=== PATIENT | female | born 2000 | race African-American/Black ===

== ENCOUNTER 2018-07-29 06:02 | Emergency (ER) | payer SELFPAY ==
[~2018-07-29] VITALS: Ht 162.6 cm; Wt 59.1 kg
[2018-07-29 06:11] VITALS: Ht 162.6 cm; Wt 59.1 kg
[2018-07-29] MEDS ORDERED: AUGMENTIN 875-11 TAB PO (06:39)
[2018-07-29] MEDS ORDERED: ERYTHROMYCIN OPT1 GM EACH EYE (06:39)
[2018-07-29] MEDS ORDERED: FLUTICASONE PRO16 GM NASAL (06:39)
[2018-07-29 06:45] VITALS: BP 112/72
== END 2018-07-29 06:45 | disposition home or self-care (01) ==
LOC: D.ER 06:02
DX: J01.90 Acute sinusitis, unspecified (principal); R09.89 Other specified symptoms and signs involving the circulatory and respiratory systems

== ENCOUNTER 2018-08-02 19:56 | Emergency (ER) | payer SELFPAY ==
[~2018-08-02] VITALS: Ht 162.6 cm; Wt 59.1 kg
[~2018-08-02 19:56] MED LIST: AUGMENTIN 875-11 TAB PO; ERYTHROMYCIN OPT1 GM EACH EYE; FLUTICASONE PRO16 GM NASAL
[2018-08-02 20:00] VITALS: Ht 162.6 cm; Wt 59.1 kg
[2018-08-02 20:43] LABS: EOSINOPHILS 2.8 % (0-7); HEMATOCRIT 42.6 % (36.0-48.0); HEMOGLOBIN 14.6 g/dL (12-16); IMMATURE GRANULOCYTES 0.2 % (0-5); LYMPHOCYTES 39.4 % (15-50); MCH 31.4 pg (26.0-34.0); MCHC 34.3 g/dL (31.0-37.0); MCV 91.6 fL (80.0-100.0); MEAN PLATELET VOLUME 10.2 fL (7.4-10.4); MONOCYTES 14.8 % (2-11); NEUTROPHILS 41.8 % (40-80); PLATELET COUNT 259 10x3/uL (130-400); RBC 4.65 10x6/uL (4.00-5.40); RDW 11.9 % (11.5-14.5); WBC 4.9 10x3/uL (4.8-10.8)
[2018-08-02 20:59] LABS: ALBUMIN 3.3 g/dL (3.4-5.0); ALKALINE PHOSPHATASE 62 U/L (46-116); ALT (SGPT) 15 U/L (10-68); BILIRUBIN - TOTAL 0.38 mg/dL (0.2-1.3); CALC OSMOLALITY 276 mosm/kg (275-300); CALCIUM 8.6 mg/dL (8.5-10.1); CARBON DIOXIDE 25.1 mmol/L (21.0-32.0); CHLORIDE - SERUM 104 mmol/L (98-107); CREATININE - SERUM 0.8 mg/dL (0.6-1.3); GLUCOSE 84 mg/dL (74-106); POTASSIUM - SERUM 3.6 mmol/L (3.5-5.1); PROTEIN - SERUM 7.5 g/dL (6.4-8.2); SODIUM 139 mmol/L (136-145); UREA NITROGEN 13 mg/dL (7-18); eGFR NON AFRICAN AMERICAN > 90 mL/min (90-120)
[2018-08-02] MEDS ORDERED: MUCINEX DM ER1 EAC1 PO (21:47)
[2018-08-02] MEDS ORDERED: ZOFRAN ODT4 MG/UDTAB PO (21:47)
[2018-08-02 22:23] VITALS: BP 97/67
== END 2018-08-02 22:23 | disposition home or self-care (01) ==
LOC: D.ER 19:56
PROVIDERS: Family Medicine
DX: B34.9 Viral infection, unspecified (principal); R09.89 Other specified symptoms and signs involving the circulatory and respiratory systems; R07.9 Chest pain, unspecified; R10.9 Unspecified abdominal pain

== ENCOUNTER 2019-12-28 04:37 | Inpatient (IN) | payer BC ==
[~2019-12-28] VITALS: Ht 162.6 cm; Wt 74.8 kg
[~2019-12-28 04:37] MED LIST changes: +MUCINEX DM ER1 EAC1 PO; +ZOFRAN ODT4 MG/UDTAB PO
[2019-12-28 07:43] LABS: UDS - AMPHET NEGATIVE QUAL (NEGATIVE); UDS - BARB NEGATIVE QUAL (NEGATIVE); UDS - BENZO NEGATIVE QUAL (NEGATIVE); UDS - COCAINE NEGATIVE QUAL (NEGATIVE); UDS - OPIATE NEGATIVE QUAL (NEGATIVE); UDS - PCP NEGATIVE QUAL (NEGATIVE); UDS - THC NEGATIVE QUAL (NEGATIVE)
[2019-12-28 07:53] LABS: BACTERIA FEW /hpf (NEGATIVE); BILIRUBIN NEGATIVE (NEGATIVE); EPITHELIAL CELLS 0-5 /hpf (0-5); GLUCOSE NEGATIVE (NEGATIVE); KETONE NEGATIVE (NEGATIVE); NITRITE NEGATIVE (NEGATIVE); RED CELLS - URINE RARE /hpf (0-5); UROBILINOGEN NORMAL (NORMAL); WHITE CELLS - URINE 0-5 /hpf (NEGATIVE)
[2019-12-28 08:01] LABS: HEMATOCRIT 29.9 % (36.0-48.0); HEMOGLOBIN 9.8 g/dL (12-16); MCHC 32.8 g/dL (31.0-37.0); MCV 91.4 fL (80.0-100.0); MEAN PLATELET VOLUME 9.9 fL (7.4-10.4); RBC 3.27 10x6/uL (4.00-5.40); RDW 12.2 % (11.5-14.5); WBC 11.2 10x3/uL (4.8-10.8)
[2019-12-28 08:08] VITALS: BP 119/77; Ht 162.6 cm; Wt 74.8 kg
[2019-12-28 19:30] VITALS: BP 111/69
--- NOTE | 2019-12-28 19:30 | NUR ---
PT REC'D IN BED AT THIS TIME. STATES THAT BACK IS SORE. REFUSES PAIN MEDICATION AT THIS TIME. SALINE LOCK TO THE LFT WRIST. SITE CELAR. FUNDUS FIRM U/2 WITH MODERATE LOCHIA NOTED. VSS. NO DISTRESS NOTED. CALL LIGHT IN EASY REACH. Bailey PARISH RN
--- NOTE | 2019-12-28 20:36 | NUR ---
PT SITTING IN BED HOLDING BABY AT THIS TIME. NO NEEDS VOICED. Bailey PARISH, RN
--- NOTE | 2019-12-28 21:30 | NUR ---
PT REC'D IN BED AT THIS TIME. [facility] ASSISTED PATIENT WITH FEEDING AT THIS TIME. NO DISTRESS NOTED. Bailey PARISH RN
--- NOTE | 2019-12-28 22:40 | NUR ---
PT REC'D IN BED WITH S/O AND . NO DISTRESS NOTED. NO NEEDS VOICED. Bailey PARISH RN
--- NOTE | 2019-12-28 22:56 | NUR ---
RN TO PT BEDSIDE, PT REQUEST SNACK TRAY AT THIS TIME, SNACK TRAY PROVIDED TO PT.
--- NOTE | 2019-12-29 00:45 | NUR ---
PT REC'D IN BED ASLEEP AT THIS TIME. RESTING WELL AT THIS TIME. RESPS EVEN AND UNLABORED. NO DISTRESS NOTED. Bailey PARISH RN
--- NOTE | 2019-12-29 02:23 | NUR ---
PT REC'D IN BED AT THIS TIME AND MEDICATED FOR PAIN WITH MOTRIN. WILL CONTINUE MONITOR. Bailey PARISH RN
--- NOTE | 2019-12-29 05:20 | NUR ---
PT REC'D IN BED RESTING COMFORTABLY AT THIS TIME. Bailey PARISH RN
[2019-12-29 06:57] LABS: BASOPHILS 0.2 % (0-2); EOSINOPHILS 0.7 % (0-7); HEMATOCRIT 28.3 % (36.0-48.0); HEMOGLOBIN 9.3 g/dL (12-16); IMMATURE GRANULOCYTES 0.4 % (0-5); LYMPHOCYTES 21.3 % (15-50); MCHC 32.9 g/dL (31.0-37.0); MCV 91.3 fL (80.0-100.0); MEAN PLATELET VOLUME 10.2 fL (7.4-10.4); MONOCYTES 9.6 % (2-11); NEUTROPHILS 67.8 % (40-80); PLATELET COUNT 228 10x3/uL (130-400); RDW 12.1 % (11.5-14.5); WBC 13.1 10x3/uL (4.8-10.8)
--- NOTE | 2019-12-29 07:30 | NUR ---
DIETARY SERVED REGULAR BREAKFAST TRAY, PT DENIES ALL NEEDS AT THIS TIME. WILL RETURN FOR AM ASSESSMENT. SRUP X2, CALL LIGHT AND PHONE WITHIN REACH.
--- NOTE | 2019-12-29 09:45 | NUR ---
PT LYING IN BED ON HER LEFT SIDE, RESP EVEN AND UL, PT IS ASLEEP, NOT DISTURBED. SIG OTHER AWAKE ON COUCH, INFANT IN CRIB, RESTING WITH EYES CLOSED, NO DISTRESS NOTED. SRUP X2, CALL LIGHT AND PHONE WITHIN REACH.
--- NOTE | 2019-12-29 12:15 | NUR ---
AM ASSESSMENT COMPLETED. SEE FLOWSHEET. PT DENIES HEAVY BLEEDING OR PASSING CLOTS. PT PROVIDED WITH EXTRA PERIPANTIES/PADS, CLEAN GOWN AND LINENS. PERICARE DONE PER SELF. SEE EMAR FOR ALL MEDS ADM BY THIS RN. SRUP X2, CALL LIGHT AND PHONE WITHIN REACH.
[2019-12-29 12:25] VITALS: BP 108/69
[2019-12-29 15:00] VITALS: BP 100/62
--- NOTE | 2019-12-29 15:00 | NUR ---
OUTREACH CLINICIAN HERE TO CARE ATTEND TO PT'S NEEDS.
--- NOTE | 2019-12-29 17:16 | MORECARE ---
CASE MANAGEMENT DISCHARGE SUMMARY PATIENT: GERI LOREDO UNIT: [id number] ADM DATE: 12/28/19 AGE: 19 : 98 SEX: F ROOM/BED: D.1276 AUTHOR: PHIL URBINA PHYSICIAN: REFERRING PHYSICIAN: RASHID BAKER MD DATE OF SERVICE: 12/29/19 Discharge Plan Patient Name: [facility]ED[facility] [facility] 2000 Planned Disposition: Home Anticipated Discharge Date: Discharge Date: Expected LOS: Initial Reviewer: [email or web address] Initial Review Date: 12/28/2019 Generated: 12/29/19 6:16 pm Patient Name: GERI LOREDO Page [id number] at 1716 All edits/amendments must be made on the electronic document DICTATION DATE: 12/29/191715 SENIOR SYSTEMS ARCHITECT: GUADALUPE 12/29/191715 RPT#: [id number] DC DATE: STATUS: ADM IN [facility] [address] [place] [address] END OF REPORT
--- NOTE | 2019-12-29 17:45 | NUR ---
DIETARY SERVES REGULAR SUPPER TRAY. PT DENIES ALL OTHER NEEDS AT THIS TIME. SRUP X2, CALL LIGHT AND PHONE WITHIN REACH.
--- NOTE | 2019-12-29 19:00 | NUR ---
REPORT GIVEN BY PHIL JASSO
--- NOTE | 2019-12-29 19:30 | NUR ---
PT WAS MOVED TO 1223. PT AMBULATED OVER TO [facility]. THE BABY FOLLOWED AFTER BY NURSERY NURSE. HER BELONGINGS WERE BROUGHT BY HER NURSE.
[2019-12-29 20:30] VITALS: BP 109/78
--- NOTE | 2019-12-29 20:30 | NUR ---
PT ASSESSMENT COMPLETED. PT IS AMBULATORY IN ROOM AND HALLWAY. SHE DOES NOT C/O PAIN AT THIS TIME. FUNDUS IS FIRM AND BLEEDING SMALL AMT. PT IS VOIDING WELL WITHOUT C/O. HEART SOUNDS GOOD, LUNGS CLEAR, BS HEARD. PT HAS NO NEEDS AT THIS TIME.
--- NOTE | 2019-12-29 22:23 | NUR ---
PT TRANSFERRED TO L&D ROOM 1273 VIA AMBULATORY.
--- NOTE | 2019-12-29 22:30 | NUR ---
PT MOVED BACK TO ROOM 1273 B/C [facility] IS CLOSING. PT IS DOING WELL. HER BABY IS IN THE CRIB AT BEDSIDE. SHE AMBULATED TO HER NEW ROOM WITHOUT DIFFICULTY. SHE HAS NO C/O AT THIS TIME. SHE WAS GIVEN A NEW MUG OF WATER AND 2 SODAS AND A CUP OF ICE. A DEVON BOTTLE WAS ALSO TAKEN TO HER. SHE IS HAPPY IN HER NEW ROOM. REPORT GIVEN TO ROMERO.
--- NOTE | 2019-12-29 23:21 | NUR ---
ROUNDING ON PT. PT DENIES ANY NEEDS AT THIS TIME. IN MOTHER'S ARMS.
--- NOTE | 2019-12-30 01:15 | NUR ---
PT RESTING IN BED AT THIS TIME. DENIES NEEDS AT THIS TIME. Bailey PARISH RN
--- NOTE | 2019-12-30 01:59 | NUR ---
INFANT TAKEN TO MOTHER'S BEDSIDE AT THIS TIME. MOTHER INSTRUCTED TO ATTEMPT TO COMFORT BABY IN BETWEEN FEEDS, USING PACIFIER, CUDDLING, SWADDLING, SO THAT BABY IS NOT SNACKING, AND IS ABLE TO TAKE GOAL VOLUME AT SCHEDULED FEEDINGS.
--- NOTE | 2019-12-30 02:15 | NUR ---
PT REC'D IN BED AT THIS TIME. NO DISTRESS NOTED. PT PROVIDED WITH WATER AT THIS TIME. Bailey PARISH RN
--- NOTE | 2019-12-30 02:15 | NUR ---
ROUNDING AT THIS TIME, PT SLEEPING.
--- NOTE | 2019-12-30 03:59 | NUR ---
PT REQUEST ICE WATER AT THIS TIME. RN PROVIDED PT WITH ICE WATER.
[2019-12-30 04:02] VITALS: BP 99/56
--- NOTE | 2019-12-30 04:03 | NUR ---
VSS. PT STATES PAIN IS 1-2/10 TO PERINEUM AT THIS TIME. FUNDUS IS FIRM, MIDLINE, 2 BELOW, SCANT RUBRA LOCHIA, NO CLOTS NOTED. PT STATES ALL NEEDS CURRENTLY MET.
--- NOTE | 2019-12-30 04:08 | NUR ---
PT GIVEN WATER AT THIS TIME. NO DISTRESS NTED. Bailey PARISH RN
--- NOTE | 2019-12-30 04:23 | NUR ---
PT PROVIDED WITH SANDWICH TRAY AND SODA FOR BOTH HER AND HER SIGNIFICANT OTHER AT THIS TIME.
[2019-12-30 07:13] LABS: RAPID PLASMA REAGIN Non Reactive (Non Reactive)
--- NOTE | 2019-12-30 07:45 | NUR ---
AM ASSESSMENT COMPLETED, SEE FLOWSHEET. PT DENIES HEAVY BLEEDING OR PASSING CLOTS. PT HAS REGULAR BREAKFAST TRAY, PT HAS REQUESTED A DR. PEPPER TO DRINK, SERVED. DENIES ALL OTHER NEEDS AT THIS TIME. SR UP X2, CALL LIGHT AND PHONE WITHIN REACH.
[2019-12-30 07:50] VITALS: BP 107/64
--- NOTE | 2019-12-30 07:56 | NUR ---
SEE EMAR FOR ALL MEDS ADM BY THIS RN. SRUP X2, CALL LIGHT AND PHONE WITHIN REACH.
--- NOTE | 2019-12-30 08:01 | NUR ---
PT HAS BEEN UP TO BR, VOIDS PER SELF WITHOUT DIFFICULTY.
--- NOTE | 2019-12-30 11:45 | NUR ---
DIETARY SERVES REGULAR LUNCH TRAY, PT DENIES ALL OTHER NEEDS AT THIS TIME. SRUP X2, CALL LIGHT AND PHONE WITHIN REACH.
--- NOTE | 2019-12-30 14:25 | NUR ---
PT SITTING UP IN BED BOTTLE FEEDING INFANT, POC DISCUSSED WITH PT REGARDING DISCHARGE AND ROOMING IN, PT PROVIDED, INST ON AND VERBALIZES UNDERSTANDING OF ROOMING IN PAPERWORK, INFORMED PT THAT I WILL BE BACK SHORTLY WITH DISCHARGE PAPERWORK, FOB SHOWN WHICH ROOM PT WILL BE TRANSFERRED TO, SO HE CAN TAKE ALL BELONGINGS TO ROOM
--- NOTE | 2019-12-30 15:50 | NUR ---
RECEIVED REPORT FROM PREETI MOY RN
--- NOTE | 2019-12-30 17:05 | NUR ---
WHILE WORKING ON PT'S DISCHARGE PAPERWORK, INFANT ALARM WENT OFF, THIS RN, EZEQUIEL CASTAÑEDA, RN, AND PREETI MOY, RN UP TO SEE WHICH ALARM WAS GOING OFF, PT, FOB AND INFANT IN OPEN CRIB CARTE NOTED NOT TO BE IN ROOM, FOB WAS TAKING PT TO HER NEW ROOM, PT INFORMED THAT SHE WAS NOT DISCHARGED YET, WENT AHEAD AND MOVED PT TO ROOM 1221, PT ORIENTED TO ROOM, BED IN LOW POSITION, SIDE RAILS X 2, INFORMED PT THAT I WILL BE BACK SHORTLY WITH PAPERWORK, PT VERBALIZES UNDERSTANDING
[2019-12-30] MEDS ORDERED: HYDROCODON-ACE1 EAC7 PO (17:19)
--- NOTE | 2019-12-30 18:00 | NUR ---
PT HOLDING INFANT, FOB AT BEDSIDE, WENT OVER ALL DISCHARGE PAPERWORK WITH PT, PT VERBALIZES UNDERSTANDING, PT INST ON NOT LOSING HER PRESCRIPTION, PT VERBALIZES UNDERSTANDING, PT DENIES ANY QUESTIONS AT THIS TIME, PT AGAIN ORIENTED TO L&D AND NSY EXTENSION FOR ANY ASSISTANCE WITH , PT DENIES FURTHER NEEDS
--- NOTE | 2019-12-31 09:16 | MORECARE ---
CASE MANAGEMENT DISCHARGE SUMMARY PATIENT: GERI LOREDO UNIT: [id number] ADM DATE: 12/28/19 AGE: 19 : [birth year] SEX: F ROOM/BED: D.1273 AUTHOR: PHIL URBINA PHYSICIAN: REFERRING PHYSICIAN: RASHID BAKER MD DATE OF SERVICE: 12/31/19 Discharge Plan Patient Name: GERI LOREDO [facility] [facility] 2000 Planned Disposition: Home Anticipated Discharge Date: Discharge Date: 12/30/2019 Expected LOS: Initial Reviewer: [email or web address] Initial Review Date: 12/28/2019 Generated: 12/31/19 10:15 am Last DP export: 12/29/19 4:16 p Patient Name: GERI LOREDO Page [id number] at 0916 All edits/amendments must be made on the electronic document DICTATION DATE: 12/31/19914 RELAY DISPATCHER: GUADALUPE 12/31/19914 RPT#: [id number] DC DATE:12/30/19 STATUS: DIS IN [facility] [address] [place] [address] END OF REPORT
--- NOTE | 2019-12-31 12:30 | MORECARE ---
CASE MANAGEMENT DISCHARGE SUMMARY PATIENT: GERI LOREDO UNIT: [id number] ADM DATE: 12/28/19 AGE: 19 : 98 SEX: F ROOM/BED: D.1273 AUTHOR: PHIL URBINA PHYSICIAN: REFERRING PHYSICIAN: RASHID BAKER MD DATE OF SERVICE: 12/31/19 Discharge Plan Patient Name: GERI LOREDO [facility] [facility] 2000 Planned Disposition: Home Anticipated Discharge Date: 12/30/19 Discharge Date: 12/30/2019 Expected LOS: 2 Initial Reviewer: [email or web address] Initial Review Date: 12/28/2019 Generated: 12/31/19 1:29 pm Last DP export: 12/31/19 8:16 a Patient Name: GERI LOREDO Page [id number] at 1230 All edits/amendments must be made on the electronic document DICTATION DATE: 12/31/19 1229 MANAGER LOAN: GUADALUPE 12/31/19 1229 RPT#: [id number] DC DATE:12/30/19 STATUS: DIS IN [facility] [address] [place] [address] END OF REPORT
== END 2019-12-30 18:00 | disposition home or self-care (01) | DRG 807 ==
LOC: D.LDO 04:37 → D.LD 07:33 → D.WS 12-29 19:40 → D.LD 12-29 22:23 → D.SDCHOLD 12-30 11:11 → D.LD 12-30 11:13
PROVIDERS: ADMIT Obstetrics & Gynecology; ATTEND Obstetrics & Gynecology
PROC: 10E0XZZ Delivery of Products of Conception, External Approach (ICD-10-PCS; principal; 2019-12-28)
PROC: 0KQM0ZZ Repair Perineum Muscle, Open Approach (ICD-10-PCS; 2019-12-28)
DX: O99.824 Streptococcus B carrier state complicating childbirth (principal); Z37.0 Single live birth; Z3A.37 37 weeks gestation of pregnancy; O70.1 Second degree perineal laceration during delivery